=== PATIENT | female | born 1970 | race Caucasian/White ===

== ENCOUNTER 2017-11-01 21:06 | Emergency (ER) | payer OTHER ==
[2017-11-01] MEDS ORDERED: BABY ASPIRIN 81 MG CHEW PO ONE (21:40)
[2017-11-01] MEDS ORDERED: TYLENOL 325 MG PO ONE (21:41)
[2017-11-01] MEDS ORDERED: ATARAX 25 MG PO ONE (21:41)
--- NOTE | 2017-11-01 21:55 | ERPHSYRPT ---
- History of Present Illness Time Seen by Provider: 11/01/17 21:23 Source: patient, family Patient Subjective Stated Complaint: pt states she has been having problems with her bp and her medication has been changed today. states she took her first dose of the norvasc today Triage Nursing Assessment: pt alert and oriented, answers questions approp. pt ambulatory with steady gait noted. respirations nonlabored with lungs cta. pupils equal and reactive. bilat upper and lower ext strength wnl. heart rate 71 Physician History: CC: high blood pressure Hx: 47 y/o patient of Dr Montenegro. She has hx of HTN. Had hysterectomy. She has prior treatment for HTN but stopped. Restarted lisinopril/HCTZ and dose was increased to 10mg BID. BP still high. She had some cough associated with the medication so after taking AM dose today she was told to start norvasc 5mg BID. Took first dose norvasc this evening. She had continued high blood pressure readings and was concerned so came to ER. She has had some chest tightness and left arm pain since yesterday. Ran on elliptical day before without any symptoms. Nonsmoker. No strong fam hx of heart disease. No drug use. No hx of heart disease. Severity: mild Allergies/Adverse Reactions: Penicillins Allergy (Verified 11/01/17 21:43) Sulfa (Sulfonamide Antibiotics) Allergy (Verified 11/01/17 21:43) Home Medications: Amlodipine Besylate 5 mg [Norvasc 5 mg] 5 mg PO BID 11/01/17 [History] Hx Tetanus, Diphtheria Vaccination/Date Given: No (unsure) Hx Influenza Vaccination/Date Given: Yes (08/2017) Hx Pneumococcal Vaccination/Date Given: No Immunizations Up to Date: No - Review of Systems Constitutional: No Symptoms Respiratory: Cough (associate with lisinopril), No Dyspnea, No Dyspnea on Exertion (CARLOS) Cardiac: Chest Pain (a little sore in upper chest, no pressure), No Edema, No Palpitations, No Syncope Abdominal/Gastrointestinal: No Abdominal Pain, No Nausea, No Vomiting Musculoskeletal: No Back Pain Skin: No Rash Neurological: Headache, No Focal Weakness, No Parasthesia All Other Systems: Reviewed and Negative - Past Medical History Pertinent Past Medical History: Yes Cardiac History: Hypertension GI Medical History: Gallbladder Disease - Past Surgical History Past Surgical History: Yes Female Surgical History: Hysterectomy - Social History Smoking Status: Never smoker Exposure to second hand smoke: No Drug Use: none Patient Lives Alone: No - Female History Hx Last Menstrual Period: hyster Hx Now: No - Nursing Vital Signs Nursing Vital Signs: Initial Vital Signs Temperature 97.8 F 11/01/17 21:14 Pulse Rate 80 11/01/17 21:14 Respiratory Rate 18 11/01/17 21:14 Blood Pressure 149/100 11/01/17 21:14 Pain Scale Pain Intensity 0 - Physical Exam General Appearance: alert Eye Exam: PERRL/EOMI Ears, Nose, Throat Exam: normal ENT inspection, moist mucous membranes Neck Exam: normal inspection, non-tender, supple Respiratory Exam: normal breath sounds Cardiovascular Exam: regular rate/rhythm Gastrointestinal/Abdomen Exam: soft, No tenderness, No distention Back Exam: normal inspection Extremity Exam: normal inspection, normal range of motion, No calf tenderness, No pedal edema Neurologic Exam: alert, oriented x 3, cooperative, sensation nml, No motor deficits Skin Exam: warm, dry, No rash SpO2 Interpretation: normal - Course Nursing assessment & vital signs reviewed: Yes EKG Interpreted by Me: RATE (70), Sinus Rhythm, NORMAL AXIS, 1st degree AV Block , NORMAL QRS, NORMAL ST-T, Other (QTc 447; LVH) - Radiology Exams cxr X-ray Interpretation: Interpreted by me, No Pneumonia, Nml Mediastinum Ordered Tests: Active Orders 24 hr Category Date Time Status Rasper Machine Operator STAT Care 11/01/17 21:40 Active Clean Catch Urine Specimen STAT Care 11/01/17 21:41 Active EKG-ER Only STAT Care 11/01/17 21:40 Active IV Insertion STAT Care 11/01/17 21:40 Active Pulse Oximetry (ED) STAT Care 11/01/17 21:40 Active CHEST 2 VIEWS (PA AND LAT) Stat Exams 11/01/17 21:40 Taken CBC W DIFF Stat Lab 11/01/17 22:10 Completed CMP Stat Lab 11/01/17 22:10 Completed TROPONIN Q3H Lab 11/01/17 22:10 Completed TROPONIN Q3H Lab 11/02/17 00:21 Completed TROPONIN Q3H Lab 11/02/17 03:45 Ordered TROPONIN Q3H Lab 11/02/17 06:45 Ordered TROPONIN Q3H Lab 11/02/17 09:45 Ordered UA W/ MICROSCOPIC Stat Lab 11/01/17 22:50 Completed Medication Summary Discontinued Medications Generic Name Dose Route Start Last Admin Trade Name Juana PRN Reason Stop Dose Admin Acetaminophen 650 mg 11/01/17 21:41 11/01/17 22:22 Tylenol 325 Mg PO 11/01/17 21:42 650 mg STAT ONE Administration Acetaminophen Confirm 11/01/17 22:20 Tylenol 325 Mg Administered 11/01/17 22:21 Dose 650 mg .ROUTE .STK-MED ONE Aspirin 81 mg 11/01/17 21:40 11/01/17 22:22 Baby Aspirin 81 Mg Chew PO 11/01/17 21:41 81 mg STAT ONE Administration Aspirin Confirm 11/01/17 22:20 Baby Aspirin 81 Mg Chew Administered 11/01/17 22:21 Dose 81 mg .ROUTE .STK-MED ONE Hydroxyzine HCl 50 mg 11/01/17 21:41 11/01/17 22:22 Atarax 25 Mg PO 11/01/17 21:42 50 mg STAT ONE Administration Hydroxyzine HCl Confirm 11/01/17 22:20 Atarax 25 Mg Administered 11/01/17 22:21 Dose 50 mg .ROUTE .STK-MED ONE Potassium Bicarbonate 50 meq 11/01/17 23:31 11/01/17 23:37 K-Lyte 25 Meq PO 11/01/17 23:32 50 meq STAT ONE Administration Potassium Bicarbonate Confirm 11/01/17 23:33 K-Lyte 25 Meq Administered 11/01/17 23:34 Dose 50 meq .ROUTE .STK-MED ONE Lab/Rad Data: Laboratory Result Diagrams 11/01/17 22:10 11/01/17 22:10 Laboratory Results 11/02/17 11/01/17 11/01/17 Range/Units 00:21 22:50 22:10 WBC (4.0-10.5) K/mm3 RBC (4.1-5.4) M/mm3 Hgb (12.0-16.0) gm/dl Hct (35-47) % MCV (78-100) fl MCH (26-32) pg MCHC (32-36) g/dl RDW (11.5-14.0) % Plt Count (150-450) K/mm3 MPV (6-9.5) fl Gran % (36.0-66.0) % Lymphocytes % (24.0-44.0) % Monocytes % (0.0-12.0) % Eosinophils % (0.00-5.0) % Basophils % (0.0-0.4) % Basophils # (0-0.4) Sodium (136-145) mEq/L Potassium (3.5-5.1) mEq/L Chloride (98-107) mEq/L Carbon Dioxide (21-32) mEq/L Anion Gap (5-15) MEQ/L BUN (9-20) mg/dL Creatinine (0.55-1.30) mg/dl Estimated GFR ML/MIN Glucose (70-110) MG/DL Calcium (8.5-10.1) mg/dL Total Bilirubin (0.2-1.0) mg/dL AST (15-37) U/L ALT (12-78) U/L Alkaline Phosphatase (46-116) U/L Troponin I < 0.017 < 0.017 (0.000-0.056) ng/ml Serum Total Protein (6.4-8.2) gm/dL Albumin (3.4-5.0) g/dL Ur Collection Type CCMS Urine Color LT.YELLOW (YELLOW) Urine Appearance CLEAR (CLEAR) Urine pH 7.0 (5-6) Ur Specific [place] 1.010 (1.005-1.025) Urine Protein NEGATIVE (Negative) Urine Ketones NEGATIVE (NEGATIVE) Urine Blood TRACE NON-HEM (0-5) Corby/ul Urine Nitrite NEGATIVE (NEGATIVE) Urine Bilirubin NEGATIVE (NEGATIVE) Urine Urobilinogen NORMAL (0-1) mg/dL Ur Leukocyte Esterase NEGATIVE (NEGATIVE) Urine Microscopic RBC 0-2 (0-2) /HPF Urine Microscopic WBC 0-2 (0-5) /HPF Ur Epithelial Cells FEW (FEW) /HPF Urine Bacteria FEW (NEGATIVE) /HPF Urine Culture Reflexed NO (NO) Urine Glucose NEGATIVE (NEGATIVE) mg/dL Specimen Received 11-01-17 [id number] 11/01/17 11/01/17 Range/Units 22:10 22:10 WBC 6.7 (4.0-10.5) K/mm3 RBC 4.44 (4.1-5.4) M/mm3 Hgb 13.0 (12.0-16.0) gm/dl Hct 40.8 (35-47) % MCV 91.9 (78-100) fl MCH 29.3 (26-32) pg MCHC 31.9 L (32-36) g/dl RDW 13.2 (11.5-14.0) % Plt Count 279 (150-450) K/mm3 MPV 10.1 H (6-9.5) fl Gran % 59.8 (36.0-66.0) % Lymphocytes % 29.6 (24.0-44.0) % Monocytes % 7.3 (0.0-12.0) % Eosinophils % 2.4 (0.00-5.0) % Basophils % 0.9 (0.0-0.4) % Basophils # 0.06 (0-0.4) Sodium 142 (136-145) mEq/L Potassium 3.1 L (3.5-5.1) mEq/L Chloride 104 (98-107) mEq/L Carbon Dioxide 29.7 (21-32) mEq/L Anion Gap 10.0 (5-15) MEQ/L BUN 11 (9-20) mg/dL Creatinine 0.73 (0.55-1.30) mg/dl Estimated GFR > 60 ML/MIN Glucose 125 H (70-110) MG/DL Calcium 8.7 (8.5-10.1) mg/dL Total Bilirubin 0.30 (0.2-1.0) mg/dL AST 18 (15-37) U/L ALT 22 (12-78) U/L Alkaline Phosphatase 107 (46-116) U/L Troponin I (0.000-0.056) ng/ml Serum Total Protein 7.5 (6.4-8.2) gm/dL Albumin 4.1 (3.4-5.0) g/dL Ur Collection Type Urine Color (YELLOW) Urine Appearance (CLEAR) Urine pH (5-6) Ur Specific [place] (1.005-1.025) Urine Protein (Negative) Urine Ketones (NEGATIVE) Urine Blood (0-5) Corby/ul Urine Nitrite (NEGATIVE) Urine Bilirubin (NEGATIVE) Urine Urobilinogen (0-1) mg/dL Ur Leukocyte Esterase (NEGATIVE) Urine Microscopic RBC (0-2) /HPF Urine Microscopic WBC (0-5) /HPF Ur Epithelial Cells (FEW) /HPF Urine Bacteria (NEGATIVE) /HPF Urine Culture Reflexed (NO) Urine Glucose (NEGATIVE) mg/dL Specimen Received - Progress Progress Note: 11/01/17 21:53 Discussed hat lacer BP goals. Will check labs and cxr and EKG as some chest pain although she is fairly low risk for heart disease. Heart Score 2 low risk (HTN, age 47). 11/02/17 00:52 The patient felt better after rest, meds. BP improved. K given. REpeat trop neg. Will release to follow up with Dr Montenegro. Reassurance given regarding BP management. She will continue norvasc 5mg BID and follow up next week. IF BP remains up may benefit from HCTZ/K addition. Counseled pt/family regarding: lab results, diagnosis, need for follow-up, rad results - Departure Time of Disposition: 00:53 Departure Disposition: Home Clinical Impression: Hypertension, Chest pain Condition: Stable Critical Care Time: No Referrals: THERESA MONTENEGRO [Primary Care Provider] - Instructions: High Blood Pressure, Atypical Chest Pain Additional Instructions: Continue amlodipine 5mg twice a day. Check and recrod blood pressure twice a day. Follow up next week with Dr Montenegro. Call for problems or concerns.
[2017-11-01] MEDS ORDERED: BABY ASPIRIN 81 MG CHEW ONE (22:20)
[2017-11-01] MEDS ORDERED: TYLENOL 325 MG ONE (22:20)
[2017-11-01] MEDS ORDERED: ATARAX 25 MG ONE (22:20)
[2017-11-01 22:24] LABS: BASOPHIL % 0.9 % (0.0-0.4); Basophil (Absolute #) 0.06 (0-0.4); Eosinophil % 2.4 % (0.00-5.0); Eosinophil (Absolute #) 0.16 (0-0.5); Granulocyte Absolute (ANC) 4.03 (1.4-6.9); Granulocytes % 59.8 % (36.0-66.0); Hematocrit 40.8 % (35-47); Lymphocyte (Absolute #) 1.99 (1.0-4.6); Lymphocytes % 29.6 % (24.0-44.0); Mean Cell Volume 91.9 fl (78-100); Mean Corpuscular Hemoglobin 29.3 pg (26-32); Mean Corpuscular Hgb Concent. 31.9 g/dl (32-36); Mean Platelet Volume 10.1 fl (6-9.5); Monocyte (Absolute #) 0.49 (0.0-1.3); Monocytes % 7.3 % (0.0-12.0); Platelet Count 279 K/mm3 (150-450); Red Blood Count 4.44 M/mm3 (4.1-5.4); Red Cell Distribution Width 13.2 % (11.5-14.0); White Blood Count 6.7 K/mm3 (4.0-10.5)
[2017-11-01 22:57] LABS: ALBUMIN 4.1 g/dL (3.4-5.0); ALKALINE PHOSPHATASE 107 U/L (46-116); BLOOD UREA NITROGEN 11 mg/dL (9-20); CHLORIDE 104 mEq/L (98-107); Calcium 8.7 mg/dL (8.5-10.1); Carbon Dioxide 29.7 mEq/L (21-32); Creatinine 1 0.73 mg/dl (0.55-1.30); EST GLOMERULAR FILTRATION RATE > 60 ML/MIN; Glucose 125 MG/DL (70-110); SGOT/AST 18 U/L (15-37); SGPT/ALT 22 U/L (12-78); Total Protein 7.5 gm/dL (6.4-8.2)
[2017-11-01 23:08] LABS: Potassium 3.1 mEq/L (3.5-5.1); SODIUM 142 mEq/L (136-145)
[2017-11-01 23:20] LABS: Appearance CLEAR (CLEAR); Glucose NEGATIVE (NEGATIVE); Ketones NEGATIVE (NEGATIVE); Leukocyte Esterase NEGATIVE (NEGATIVE); Nitrite NEGATIVE (NEGATIVE); Protein,Urine Dip NEGATIVE (Negative); Urobilinogen NORMAL mg/dL (0-1)
[2017-11-01 23:21] LABS: Bacteria FEW /HPF (NEGATIVE); Bilirubin NEGATIVE (NEGATIVE); Blood TRACE NON-HEM Ery/ul (0-5); Epithelial Cells FEW /HPF (FEW); WBC 0-2 /HPF (0-5)
[2017-11-01] MEDS ORDERED: K-LYTE 25 MEQ PO ONE (23:31)
[2017-11-01] MEDS ORDERED: K-LYTE 25 MEQ ONE (23:33)
[2017-11-02 00:58] VITALS: BP 148/95; PULSE 76; O2SAT 97
--- NOTE | 2017-11-02 09:11 | XRAY ---
Indication: Chest tightness. Hypertension. Comparison: April 03, 2011. PA/lateral chest hyperinflated again with scattered calcified granulomas. No focal infiltrate, consolidation, or large effusion. Heart is not enlarged. Bony thorax intact with minimal pectus excavatum deformity. Impression: Stable nonacute chest with chronic features.
== END 2017-11-02 01:04 | disposition home or self-care (01) ==
LOC: ED 21:06
DX: I10 Essential (primary) hypertension (principal); Z79.899 Other long term (current) drug therapy; R07.9 Chest pain, unspecified
CPT/HCPCS: 36000; 36415; 71020; 80053; 81000; 84484; 85025; 93005; 93041; 99284; A9270-GY

== ENCOUNTER 2022-10-01 13:48 | Emergency (ER) | payer OTHER ==
--- NOTE | 2022-10-01 13:52 | ERPHSYRPT ---
- History of Present Illness Time Seen by Provider: 10/01/22 13:51 Historian: patient Exam Limitations: no limitations Physician History: This is a 52-year-old white female who is a patient of Dr. Tacos Christopher has a history of hypertension and kidney issues (sees Dr. Huerta) and presents with 2- day history of right flank pain and diffuse abdominal pain which was more mild then today. The pain that came on 2 days ago completely resolved. However, this morning, the pain was worse in those areas. She has had no nausea or vomiting or diarrhea symptoms. She denies shortness of breath and she denies chest pain. The pain is severe in the right flank area, and epigastric area. In addition, she has some diffuse abdominal pain to palpation. Timing/Duration: day(s), worse Quality: aching, cramping, sharpness (Today) Abdominal Pain Onset Location: generalized abdomen Pain Radiation: no radiation Severity of Pain-Max: moderate Severity of Pain-Current: moderate Modifying Factors: Improves With: nothing Associated Symptoms: No chest pain, No diarrhea, No fever/chills, No nausea, No vomiting Previous symptoms: no prior history Allergies/Adverse Reactions: Penicillins Allergy (Verified 10/01/22 14:08) Sulfa (Sulfonamide Antibiotics) Allergy (Verified 10/01/22 14:08) Home Medications: Losartan Potassium 50 mg [Cozaar 50 MG] 50 mg PO DAILY 10/01/22 [History] Potassium Citrate [Potassium Citrate ER] 10 meq PO DAILY 10/01/22 [History] Hx Tetanus, Diphtheria Vaccination/Date Given: No (unsure) Hx Influenza Vaccination/Date Given: Yes (08/2017) Hx Pneumococcal Vaccination/Date Given: No Travel Risk - International Travel Have you traveled outside of the country in past 3 weeks: No - Coronavirus Screening Are you exhibiting any of the following symptoms?: No Close contact with a COVID-19 positive Pt in past 14-21 Days: No - Review of Systems Constitutional: No Symptoms Eyes: No Symptoms Ears, Nose, & Throat: No Symptoms Respiratory: No Symptoms Cardiac: No Symptoms Abdominal/Gastrointestinal: Abdominal Pain Genitourinary Symptoms: Hematuria (Chronic micro hematuria that is intermittent), Flank Pain, No Dysuria, No Frequency Musculoskeletal: No Symptoms Skin: No Symptoms Neurological: No Symptoms Psychological: No Symptoms Endocrine: No Symptoms Hematologic/Lymphatic: No Symptoms Immunological/Allergic: No Symptoms All Other Systems: Reviewed and Negative - Past Medical History Pertinent Past Medical History: Yes Neurological History: No Pertinent History Cardiac History: Hypertension Respiratory History: No Pertinent History Endocrine Medical History: No Pertinent History Musculoskeletal History: No Pertinent History GI Medical History: Gallbladder Disease Other Medical History: GALLBLADER REMOVED, HYSTERECTOMY, 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 - Past Surgical History Past Surgical History: Yes Female Surgical History: Hysterectomy - Social History Smoking Status: Never smoker Exposure to second hand smoke: No Drug Use: none Patient Lives Alone: No - Nursing Vital Signs Nursing Vital Signs: Initial Vital Signs Temperature 97.6 F 10/01/22 14:07 Pulse Rate 57 L 10/01/22 14:07 Respiratory Rate 26 H 10/01/22 14:07 Blood Pressure 160/100 10/01/22 14:07 O2 Sat by Pulse Oximetry 100 10/01/22 14:07 Pain Scale Pain Intensity 4 - Physical Exam General Appearance: mild distress, alert, anxiety Eye Exam: PERRL/EOMI, eyes nml inspection Ears, Nose, Throat Exam: normal ENT inspection, moist mucous membranes Neck Exam: normal inspection, non-tender, supple, full range of motion Respiratory Exam: normal breath sounds, lungs clear, airway intact, No chest tenderness, No respiratory distress Cardiovascular Exam: regular rate/rhythm, normal heart sounds, normal peripheral pulses Gastrointestinal/Abdomen Exam: soft, normal bowel sounds, tenderness (Diffuse to palpation), guarding, No rebound (Diffuse to palpation) Pelvic Exam: not done Rectal Exam: not done Back Exam: normal inspection, normal range of motion, No CVA tenderness, No vertebral tenderness Extremity Exam: normal inspection, normal range of motion, pelvis stable Neurologic Exam: alert, oriented x 3, cooperative, precinct commanding officer II-XII nml as tested, normal mood/affect, nml cerebellar function, nml station & gait, sensation nml Skin Exam: normal color, warm, dry Lymphatic Exam: No adenopathy SpO2 Interpretation: normal O2 Delivery: Room Air - Course Nursing assessment & vital signs reviewed: Yes Ordered Tests: Active Orders 24 hr Category Date Time Status IV Insertion STAT Care 10/01/22 14:24 Active ABDOMEN AND PELVIS W/0 CONTRAS [CT] Stat Exams 10/01/22 15:27 Taken AMYLASE Stat Lab 10/01/22 15:00 Completed BLOOD CULTURE Stat Lab 10/01/22 15:09 Received CBC W DIFF Stat Lab 10/01/22 14:24 Completed CMP Stat Lab 10/01/22 15:00 Completed LIPASE Stat Lab 10/01/22 15:00 Completed Lactic Acid Stat Lab 10/01/22 14:49 Completed Lactic Acid Stat Lab 10/01/22 16:53 Completed UA W/RFX CULTURE Stat Lab 10/01/22 16:08 Completed Medication Summary Generic Name Dose Route Start Last Admin Trade Name Freq PRN Reason Stop Dose Admin Sodium Chloride 1,000 mls @ 999 mls/hr 10/01/22 17:22 10/01/22 17:23 Sodium Chloride 0.9% 1000 Ml IV 10/01/22 18:22 999 mls/hr .Q1H1M STA Administration Discontinued Medications Generic Name Dose Route Start Last Admin Trade Name Juana PRN Reason Stop Dose Admin Hydromorphone HCl 1 mg 10/01/22 14:24 10/01/22 14:36 Hydromorphone 1 Mg/1ml Inj 1 Mg/Ml Syringe IV 10/01/22 14:25 1 mg STAT ONE Administration Hydromorphone HCl Confirm 10/01/22 14:34 Hydromorphone 1 Mg/1ml Inj 1 Mg/Ml Syringe Administered 10/01/22 14:35 Dose 1 mg .ROUTE .STK-MED ONE Sodium Chloride 1,000 mls @ 999 mls/hr 10/01/22 14:24 10/01/22 16:44 Sodium Chloride 0.9% 1000 Ml IV 10/01/22 15:24 Infused .Q1H1M STA Infusion Sodium Chloride Confirm 10/01/22 14:34 Sodium Chloride 0.9% 1000 Ml Administered 10/01/22 14:35 Dose 1,000 mls @ ud .ROUTE .STK-MED ONE Sodium Chloride Confirm 10/01/22 17:21 Sodium Chloride 0.9% 1000 Ml Administered 10/01/22 17:22 Dose 1,000 mls @ ud .ROUTE .STK-MED ONE Ondansetron HCl 4 mg 10/01/22 14:24 10/01/22 14:36 Ondansetron Hcl 4 Mg/2 Ml Vial IV 10/01/22 14:25 4 mg STAT ONE Administration Ondansetron HCl Confirm 10/01/22 14:33 Ondansetron Hcl 4 Mg/2 Ml Vial Administered 10/01/22 14:34 Dose 4 mg .ROUTE .STK-MED ONE Lab/Rad Data: Laboratory Result Diagrams 10/01/22 14:24 10/01/22 15:00 Laboratory Results 10/01/22 10/01/22 10/01/22 Range/Units 16:53 16:08 15:00 WBC (4.0-10.5) x10^3/uL RBC (4.1-5.4) x10^6/uL Hgb (12.0-16.0) g/dL Hct (35-47) % MCV (78-100) fL MCH (26-32) pg MCHC (32-36) g/dL RDW (11.5-14.0) % Plt Count (150-450) x10^3/uL MPV (7.5-11.0) fL Gran % (36.0-66.0) % Immature Gran % (Auto) (0.00-0.4) % Nucleat RBC Rel Count (0.00-0.1) % Eos # (Auto) (0-0.5) x10^3/uL Immature Gran # (Auto) (0.00-0.03) x10^3u/L Absolute Lymphs (auto) (1.0-4.6) x10^3/uL Absolute Monos (auto) (0.0-1.3) x10^3/uL Absolute Nucleated RBC (0.00-0.01) x10^3u/L Lymphocytes % (24.0-44.0) % Monocytes % (0.0-12.0) % Eosinophils % (0.00-5.0) % Basophils % (0.0-0.4) % Absolute Granulocytes (1.4-6.9) x10^3/uL Basophils # (0-0.4) x10^3/uL Sodium 134 L (137-145) mmol/L Potassium 3.2 L (3.5-5.1) mmol/L Chloride 104 (98-107) mmol/L Carbon Dioxide 22 (22-30) mmol/L Anion Gap 11.6 (5-15) MEQ/L BUN 9 (7-17) mg/dL Creatinine 0.54 (0.52-1.04) mg/dL Estimated GFR > 60.0 ML/MIN Glucose 99 (74-106) mg/dL Lactic Acid 1.5 (0.4-2.0) Calcium 8.3 L (8.4-10.2) mg/dL Total Bilirubin 0.60 (0.2-1.3) mg/dL AST 25 (14-36) U/L ALT 18 (0-35) U/L Alkaline Phosphatase 67 (38-126) U/L Serum Total Protein 6.9 (6.3-8.2) g/dL Albumin 4.1 (3.5-5.0) g/dL Amylase 79 (30-110) U/L Lipase 58 (23-300) U/L Urinalys Dipstick Clnc MAIN LAB Urine Color YELLOW (YELLOW) Urine Appearance CLEAR (CLEAR) Urine pH 7.0 (5-6) Ur Specific [place] 1.025 (1.005-1.025) POC Urine Protein Conf NEGATIVE (Negative) Urine Ketones TRACE A (NEGATIVE) Urine Nitrite NEGATIVE (NEGATIVE) Urine Bilirubin NEGATIVE (NEGATIVE) Urine Urobilinogen 0.2 (0-1) mg/dL Urine Leukocytes NEGATIVE (NEGATIVE) Urine WBC (Auto) NONE (0-5) /HPF Urine RBC (Auto) 3-5 A (0-2) /HPF U Epithel Cells (Auto) NONE (FEW) /HPF Urine Bacteria (Auto) RARE (NEGATIVE) /HPF Urine RBC SMALL A (0-5) Corby/ul Ur Culture Indicated? NO Urine Glucose NEGATIVE (NEGATIVE) mg/dL 10/01/22 10/01/22 Range/Units 14:49 14:24 WBC 10.1 (4.0-10.5) x10^3/uL RBC 4.44 (4.1-5.4) x10^6/uL Hgb 13.7 (12.0-16.0) g/dL Hct 41.7 (35-47) % MCV 93.9 (78-100) fL MCH 30.9 (26-32) pg MCHC 32.9 (32-36) g/dL RDW 12.1 (11.5-14.0) % Plt Count 182 (150-450) x10^3/uL MPV 12.0 H (7.5-11.0) fL Gran % 85.0 H (36.0-66.0) % Immature Gran % (Auto) 0.4 (0.00-0.4) % Nucleat RBC Rel Count 0.0 (0.00-0.1) % Eos # (Auto) 0.01 (0-0.5) x10^3/uL Immature Gran # (Auto) 0.04 H (0.00-0.03) x10^3u/L Absolute Lymphs (auto) 0.99 L (1.0-4.6) x10^3/uL Absolute Monos (auto) 0.42 (0.0-1.3) x10^3/uL Absolute Nucleated RBC 0.00 (0.00-0.01) x10^3u/L Lymphocytes % 9.8 L (24.0-44.0) % Monocytes % 4.2 (0.0-12.0) % Eosinophils % 0.1 (0.00-5.0) % Basophils % 0.5 (0.0-0.4) % Absolute Granulocytes 8.56 H (1.4-6.9) x10^3/uL Basophils # 0.05 (0-0.4) x10^3/uL Sodium (137-145) mmol/L Potassium (3.5-5.1) mmol/L Chloride (98-107) mmol/L Carbon Dioxide (22-30) mmol/L Anion Gap (5-15) MEQ/L BUN (7-17) mg/dL Creatinine (0.52-1.04) mg/dL Estimated GFR ML/MIN Glucose (74-106) mg/dL Lactic Acid 5.3 H (0.4-2.0) Calcium (8.4-10.2) mg/dL Total Bilirubin (0.2-1.3) mg/dL AST (14-36) U/L ALT (0-35) U/L Alkaline Phosphatase (38-126) U/L Serum Total Protein (6.3-8.2) g/dL Albumin (3.5-5.0) g/dL Amylase (30-110) U/L Lipase (23-300) U/L Urinalys Dipstick Clnc Urine Color (YELLOW) Urine Appearance (CLEAR) Urine pH (5-6) Ur Specific [place] (1.005-1.025) POC Urine Protein Conf (Negative) Urine Ketones (NEGATIVE) Urine Nitrite (NEGATIVE) Urine Bilirubin (NEGATIVE) Urine Urobilinogen (0-1) mg/dL Urine Leukocytes (NEGATIVE) Urine WBC (Auto) (0-5) /HPF Urine RBC (Auto) (0-2) /HPF U Epithel Cells (Auto) (FEW) /HPF Urine Bacteria (Auto) (NEGATIVE) /HPF Urine RBC (0-5) Corby/ul Ur Culture Indicated? Urine Glucose (NEGATIVE) mg/dL - Progress Progress: improved Progress Note: 10/01/22 17:33 Scan of the abdomen pelvis without contrast shows a smaller fluid collection identified in the cul-de-sac representing either an adnexal/peritoneal inclusion cyst or small ascites. There is no acute intra-abdominal findings. Counseled pt/family regarding: lab results, diagnosis, need for follow-up, rad results - Departure Departure Disposition: Home Clinical Impression: Abdominal pain, Pelvic adnexal fluid collection Condition: Stable Critical Care Time: No Referrals: THERESA HENDERSON [Primary Care Provider] - Follow up/PCP as directed Additional Instructions: Drink plenty fluids. Use Tylenol and ibuprofen for pain control. Follow-up with your primary care physician or weft straightener for further evaluation management.
[2022-10-01] MEDS ORDERED: Sodium Chloride 0.9% 1000 ML 1,000 ML IV STA ×2 (14:24→17:22)
[2022-10-01] MEDS ORDERED: Hydromorphone 1 mg/ml Injection IV ONE (14:24)
[2022-10-01] MEDS ORDERED: Zofran 4 MG/2 ML VIAL IV ONE (14:24)
[2022-10-01] MEDS ORDERED: Zofran 4 MG/2 ML VIAL ONE (14:33)
[2022-10-01] MEDS ORDERED: Hydromorphone 1 mg/ml Injection ONE (14:34)
[2022-10-01] MEDS ORDERED: Sodium Chloride 0.9% 1000 ML 1,000 ML ONE ×2 (14:34→17:21)
[2022-10-01 14:58] LABS: Absolute Neutrophil Ct (ANC) 8.56 x10^3/uL (1.4-6.9); Basophil (Absolute #) 0.05 x10^3/uL (0-0.4); Eosinophil % 0.1 % (0.00-5.0); Eosinophil (Absolute #) 0.01 x10^3/uL (0-0.5); Hematocrit 41.7 % (35-47); Hemoglobin 13.7 g/dL (12.0-16.0); Lymphocyte (Absolute #) 0.99 x10^3/uL (1.0-4.6); Lymphocytes % 9.8 % (24.0-44.0); Mean Cell Volume 93.9 fL (78-100); Mean Corpuscular Hemoglobin 30.9 pg (26-32); Mean Corpuscular Hgb Concent. 32.9 g/dL (32-36); Monocyte (Absolute #) 0.42 x10^3/uL (0.0-1.3); Monocytes % 4.2 % (0.0-12.0); Platelet Count 182 x10^3/uL (150-450); Red Blood Count 4.44 x10^6/uL (4.1-5.4); Red Cell Distribution Width 12.1 % (11.5-14.0); White Blood Count 10.1 x10^3/uL (4.0-10.5)
[2022-10-01 15:31] LABS: ALBUMIN 4.1 g/dL (3.5-5.0); ALKALINE PHOSPHATASE 67 U/L (38-126); AMYLASE 79 U/L (30-110); ANION GAP 11.6 MEQ/L (5-15); BLOOD UREA NITROGEN 9 mg/dL (7-17); CHLORIDE 104 mmol/L (98-107); Calcium 8.3 mg/dL (8.4-10.2); Carbon Dioxide 22 mmol/L (22-30); Creatinine 1 0.54 mg/dL (0.52-1.04); EST GLOMERULAR FILTRATION RATE > 60.0 ML/MIN; Glucose 99 mg/dL (74-106); LIPASE 58 U/L (23-300); Potassium 3.2 mmol/L (3.5-5.1); SGOT/AST 25 U/L (14-36); SGPT/ALT 18 U/L (0-35); SODIUM 134 mmol/L (137-145); Total Protein 6.9 g/dL (6.3-8.2)
[2022-10-01 16:23] LABS: Appearance CLEAR (CLEAR); Bacteria RARE /HPF (NEGATIVE); Bilirubin NEGATIVE (NEGATIVE); Dipstick done @ ? MAIN LAB; Glucose NEGATIVE (NEGATIVE); Ketones TRACE (NEGATIVE); Nitrite NEGATIVE (NEGATIVE); Protein,Urine Dip NEGATIVE (Negative); RBC SMALL Ery/ul (0-5); Specific Gravity 1.025 (1.005-1.025); Urobilinogen 0.2 mg/dL (0-1)
[2022-10-01 16:24] LABS: Urine Cultured Indicated? NO
[2022-10-01] MEDS ORDERED: Klor Con PO ONE ×2 (17:35→17:51)
[2022-10-01] MEDS ORDERED: NORCO 5/325 MG PO ONE (17:53)
[2022-10-01 18:17] VITALS: BP 117/72; PULSE 70; O2SAT 98
[2022-10-01] MEDS ORDERED: NORCO 5/325 MG ONE (18:18)
--- NOTE | 2022-10-01 21:03 | XRAY ---
Indication: Right flank pain. Multiple contiguous axial images obtained through the abdomen and pelvis without contrast using renal stone protocol. Comparison: None Lung bases are clear. Heart not enlarged. No renal calculus or evidence for obstructive uropathy in either system. Noncontrasted stomach and bowel loops nonobstructed with normal appendix. There is now mild diffuse scattered colonic fecal debris greatest in the right hemicolon. Again cholecystectomy and hysterectomy. Cul-de-sac demonstrates new 4 cm rounded fluid collection versus ovary cyst. No free air. Remaining liver, pancreas, spleen, adrenal glands, kidneys, ureters, bladder, and aorta are unremarkable for noncontrast exam. Osseous structures intact. Impression: 1. Negative renal calculus or evidence for obstructive uropathy. 2. New 4 cm rounded cul-de-sac fluid. Query partial versus total hysterectomy as this may represent ovary cyst. 3. Mild fecal stasis. Comment: Preliminary interpretation made by [facility]. No critical discrepancy.
== END 2022-10-01 18:36 | disposition home or self-care (01) ==
LOC: ED 13:48
DX: E87.6 Hypokalemia (principal); R18.8 Other ascites; R10.84 Generalized abdominal pain; R10.13 Epigastric pain; I10 Essential (primary) hypertension; Z79.899 Other long term (current) drug therapy
CPT/HCPCS: 36000; 36415; 74176; 80053; 81015; 82150; 83605; 83690; 85025; 87040; 96360; 96361; 96374; 96375; 99284; J1170; J2405; A9270-GY